=== PATIENT | female | born 1995 | race African-American/Black ===

== ENCOUNTER 2021-05-09 19:45 | Observation (INO) | payer BC ==
[~2021-05-09] VITALS: Ht 160 cm; Wt 65.6 kg
--- NOTE | 2021-05-09 20:05 | PDOC1 ---
[facility] H&P Date of Admission: Date of Admission: May 09, 2021 at 19:45 History of Present Illness: The pt is a 26y who presented to the ER with VB and RLQ pain. The pt reported the intermittent since 03/21/21. The pt has not had a period since her delivery 06/07/20. She has been breast feeding over that time period. In the ER a u/s was performed revealing the followin. No evidence of intrauterine . 2. Heterogeneous region within the right adnexa with large complex fluid in the pelvis, may represent ruptured ectopic . Recommend further clinical evaluation. PMH: Denies PSH: Denies Meds: OCPs All: NKDA OBHx: 2 x TSVD SH: no tob, no EtOH FH: Breast CA Physical Exam: PE: GENERAL: No apparent distress. Alert and oriented. HEENT: Head normocephalic, atraumatic. NECK: Supple LUNGS: Clear to auscultation. HEART: RRR, S1, S2 present, pulses intact ABDOMEN: Soft, positive bowel sounds. EXTREMITIES: No cyanosis or edema. NEUROLOGIC: Normal speech, normal tone PSYCHIATRIC: Normal affect, normal mood. SKIN: No ulceration. Assessment & Plan: A/P 26y with ruptured right ectopic 1.) Rupture ectopic will move toward laparoscopic right salpingectomy 2.) CBC and T/S ordered VASILIY HAMEED MD May 09, 2021 20:05
[2021-05-09] MEDS ORDERED: ROCURONIUM 50 MG/5 ML VIAL. ONE (20:10)
[2021-05-09] MEDS ORDERED: fentaNYL PF VIAL 100 MCG/2 ML VIAL ONE ×2 (20:10→20:48)
[2021-05-09] MEDS ORDERED: ONDANSETRON PF 4 MG/2 ML VIAL. ONE (20:10)
[2021-05-09] MEDS ORDERED: LIDOCAINE 2% PF 5 ML VIAL. ONE (20:10)
[2021-05-09] MEDS ORDERED: PROPOFOL 10 MG/ML (20ML) VIAL. IV ONE ×2 (20:10→21:40)
[2021-05-09] MEDS ORDERED: DEXAMETHASONE SOD PHOS 4 MG/ML VIAL ONE (20:10)
[2021-05-09] MEDS ORDERED: SUCCINYLCHOLINE 200 MG/10 ML VIAL. ONE (20:10)
[2021-05-09 20:27] LABS: BASO # 0.1 x10^3/uL (0.0-0.2); BASO % 1 % (0-3); EOS % 0 % (0-3); HEMATOCRIT 31.1 % (36.0-47.0); HEMOGLOBIN 10.5 g/dL (12.0-15.5); LYMPH % 28 % (24-48); MEAN CORPUSCULAR HEMOGLOBIN 30 pg (25-35); MEAN CORPUSCULAR HGB CONC 34 g/dL (31-37); MEAN CORPUSCULAR VOLUME 88 fL (79-100); MONO # 0.5 x10^3/uL (0.0-1.1); MONO % 7 % (0-9); NEUT # 4.5 x10^3/uL (1.8-7.7); NEUT % 64 % (31-73); PLATELET COUNT 195 x10^3/uL (140-400); RED BLOOD COUNT 3.54 x10^6/uL (3.50-5.40); RED CELL DISTRIBUTION WIDTH 12.8 % (11.5-14.5)
[2021-05-09] MEDS ORDERED: IV RINGERS,LACTATED 1000ML 1,000 ML IV SCH ×2 (20:30→21:15)
[2021-05-09] MEDS ORDERED: MORPHINE SULFATE 2 MG/ML INJ. IVP PRN ×2 (21:15→22:15)
[2021-05-09] MEDS ORDERED: PROCHLORPERAZINE 10 MG/2 ML VIAL. IVP PRN ×2 (21:15→22:15)
[2021-05-09] MEDS ORDERED: fentaNYL PF VIAL 100 MCG/2 ML VIAL IVP PRN ×4 (21:15→22:15)
[2021-05-09] MEDS ORDERED: HYDROmorphone 2 MG/ML VIAL IVP PRN (21:15)
[2021-05-09] MEDS ORDERED: NEOSTIGMINE METHYLSULFATE 5 MG/5 ML SYRINGE. ONE (21:17)
[2021-05-09] MEDS ORDERED: KETOROLAC 30 MG/ML VIAL. ONE (21:17)
[2021-05-09] MEDS ORDERED: GLYCOPYRROLATE 1 MG/5 ML VIAL. ONE (21:17)
[2021-05-09] MEDS ORDERED: SEVOFLURANE 31 TO 60 MINUTES. IH ONE (21:22)
[2021-05-09] MEDS ORDERED: SEVOFLURANE 61 TO 120 MINUTES. IH ONE (21:28)
[2021-05-09] MEDS ORDERED: IV NORMAL SALINE 1000ML BAG 1,000 ML IV SCH (21:30)
[2021-05-09] MEDS ORDERED: DEXTROSE 50% 25 GM / 50ML DISP.SYRIN. IV PRN (21:30)
[2021-05-09] MEDS ORDERED: diphenhydrAMINE 50 MG/ML VIAL IV PRN (21:30)
[2021-05-09] MEDS ORDERED: oxyCODONE/APAP 5/325 1 TAB TABLET PO PRN ×2 (21:30)
[2021-05-09] MEDS ORDERED: NALOXONE 0.4 MG/ML VIAL. IV PRN (21:30)
[2021-05-09] MEDS ORDERED: IV DEXTROSE 5 %-0.45 % NACL 1,000 ML IV SCH (21:30)
[2021-05-09] MEDS ORDERED: 0.9 % SODIUM CHLORIDE 10 ML DISP.SYRIN. IV PRN (21:30)
[2021-05-09] MEDS ORDERED: diphenhydrAMINE HCL 25 MG CAPSULE PO PRN (21:30)
[2021-05-09] MEDS ORDERED: IBUPROFEN 200 MG TABLET. PO PRN (21:30)
[2021-05-09] MEDS ORDERED: MORPHINE SULFATE 2 MG/ML INJ. IV PRN ×2 (21:30)
[2021-05-09] MEDS ORDERED: KETOROLAC 15 MG/ML VIAL. IV PRN (21:30)
--- NOTE | 2021-05-09 21:41 | PDOC4 ---
OPERATIVE NOTE: PreOp Dx: 1.) Rupture right ectopic PostOp Dx: same Procedure: L/S right salpingectomy Surgeon: Hailey Hameed Anesthesia: GETA EBL: 300 cc Fluids: 1800 cc UOP: 80 cc Findings: right ruptured ectopic Complications: None VASILIY HAMEED MD May 09, 2021 21:41
[2021-05-09] MEDS ORDERED: MORPHINE SULFATE 2 MG/ML INJ. ONE (22:11)
[2021-05-09] MEDS ORDERED: HYDROmorphone 2 MG/ML VIAL IV PRN ×2 (22:15)
--- NOTE | 2021-05-09 22:16 | OP ---
DATE OF SURGERY: 05/09/2021 PREOPERATIVE DIAGNOSIS: Ruptured of right ectopic . POSTOPERATIVE DIAGNOSIS: Ruptured of right ectopic . PROCEDURE: Laparoscopic right salpingectomy. SURGEON: Alexi Monroe MD. ANESTHESIA: General endotracheal intubation. ESTIMATED BLOOD LOSS: 300 mL. FLUIDS: 1800 mL. URINE OUTPUT: 80 mL. FINDINGS: Right ruptured ectopic with approximately 300 mL of blood and clot in the pelvis. COMPLICATIONS: None. DESCRIPTION OF PROCEDURE: The patient was taken to the operating room where general endotracheal intubation was obtained without difficulty. The patient was prepped and draped in normal sterile fashion. A sponge stick was then placed into the vagina to manipulate the uterus. Attention was then turned to the abdomen where a 5 mm skin incision was made in the infraumbilical fold. A Veress needle was then introduced into the incision and the abdomen was insufflated to 15 mmHg. At that point, the Veress needle was removed and a 5 mm trocar was placed into the abdomen. Intraabdominal placement was confirmed with the laparoscope. At that point, there was approximately 300 mL of blood in the pelvis. A second trocar was then placed on the left approximately two-thirds between the ischial spine and the umbilicus first by making a 5 mm skin incision and then placing a 5 mm trocar under direct visualization of laparoscope. At that point, the suction brine tank separator operator was used to clear some of the blood due to the large clots. It was hard to evacuate all the blood at that time. So attention was then turned to the right side where a third trocar was then placed approximately two-thirds between the ischial spine and the umbilicus first by making a 5 mm skin incision and then placing a 5 mm trocar under direct visualization of the laparoscope. At that point, the tube containing the ectopic was grabbed and the Harmonic scalpel was used to separate this portion of the tube from the ovary. Once the portion of the tube containing the ectopic was from the ovary, the distal portion of the tube was then placed into the anterior cul-de-sac. At that point, the 5 mm trocar and the umbilicus was removed. The skin incision was then extended to 10 mm to allow for a 10 mm trocar to be placed. Once this was done, the Biobag was then placed into the pelvis and opened and the ectopic was then placed inside the laparoscopic bag, which was then closed and brought through the 10 mm skin incision. At that point, the pelvis was copiously irrigated with the suction device to clear all the clots and debris. Good hemostasis was noted. At that point, the laparoscopic instruments were removed. The abdomen was then insufflated and trocars were removed. The 10 mm fascial incision was then closed with 0 Vicryl in a running fashion. The skin was then closed with 3-0 Monocryl in a subcuticular manner. The patient tolerated the procedure well. Sponges, laps and needles were correct x 2. The patient was taken to recovery room in stable condition. KISHORE DR: Patrick TID: [id number]
[2021-05-09] MEDS ORDERED: HYDROmorphone 2 MG/ML VIAL ONE (22:30)
[2021-05-09 23:05] VITALS: BP 117/77
[2021-05-09 23:20] VITALS: BP 117/80
[2021-05-09 23:35] VITALS: BP 112/69
[2021-05-09 23:50] VITALS: BP 106/70
[2021-05-10 00:06] VITALS: BP 110/72
[2021-05-10 01:06] VITALS: BP 120/61
[2021-05-10] MEDS ORDERED: KETOROLAC 30 MG/ML VIAL. IV PRN (02:15)
[2021-05-10 05:15] VITALS: BP 98/59
[2021-05-10 08:26] LABS: BASO % 0 % (0-3); EOS % 0 % (0-3); HEMATOCRIT 28.5 % (36.0-47.0); HEMOGLOBIN 9.7 g/dL (12.0-15.5); LYMPH # 0.7 x10^3/uL (1.0-4.8); LYMPH % 12 % (24-48); MEAN CORPUSCULAR HEMOGLOBIN 30 pg (25-35); MEAN CORPUSCULAR HGB CONC 34 g/dL (31-37); MEAN CORPUSCULAR VOLUME 89 fL (79-100); MONO # 0.3 x10^3/uL (0.0-1.1); MONO % 5 % (0-9); NEUT % 83 % (31-73); PLATELET COUNT 173 x10^3/uL (140-400); RED BLOOD COUNT 3.19 x10^6/uL (3.50-5.40); RED CELL DISTRIBUTION WIDTH 13.1 % (11.5-14.5); WHITE BLOOD COUNT 6.1 x10^3/uL (4.0-11.0)
[2021-05-10 08:38] LABS: CALCIUM 8.5 mg/dL (8.5-10.1); CREATININE 0.6 mg/dL (0.6-1.0); GFR 145.1; POTASSIUM 4.2 mmol/L (3.5-5.1)
[2021-05-10] MEDS ORDERED: DOCUSATE SODIUM 100 MG CAPSULE. PO SCH (09:00)
[2021-05-10] MEDS ORDERED: OXYC1TAB15 PO (10:25)
--- NOTE | 2021-05-10 11:09 | PDOC ---
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 Sherwin PO. Voiding. Objective: Vital Signs: Vital Signs Date Time Temp Pulse Resp B/P (MAP) Pulse Ox O2 Delivery O2 Flow Rate FiO2 05/09/21 20:05 98.8 103 20 135/86 98 Room Air 98.8 05/09/21 21:44 8 Vital Signs Date Time Temp Pulse Resp B/P (MAP) Pulse Ox O2 Delivery O2 Flow Rate FiO2 05/10/21 05:15 97.9 92 20 98/59 (72) 97 Room Air 97.9 05/09/21 22:01 8 Labs: Laboratory Tests Test 05/09/21 20:15 05/10/21 08:00 White Blood Count 7.0 x10^3/uL (4.0-11.0) 6.1 x10^3/uL (4.0-11.0) Red Blood Count 3.54 x10^6/uL (3.50-5.40) 3.19 x10^6/uL (3.50-5.40) L Hemoglobin 10.5 g/dL (12.0-15.5) L 9.7 g/dL (12.0-15.5) L Hematocrit 31.1 % (36.0-47.0) L 28.5 % (36.0-47.0) L Mean Corpuscular Volume 88 fL (79-100) 89 fL (79-100) Mean Corpuscular Hemoglobin 30 pg (25-35) 30 pg (25-35) Mean Corpuscular Hemoglobin Concent 34 g/dL (31-37) 34 g/dL (31-37) Red Cell Distribution Width 12.8 % (11.5-14.5) 13.1 % (11.5-14.5) Platelet Count 195 x10^3/uL (140-400) 173 x10^3/uL (140-400) Neutrophils (%) (Auto) 64 % (31-73) 83 % (31-73) H Lymphocytes (%) (Auto) 28 % (24-48) 12 % (24-48) L Monocytes (%) (Auto) 7 % (0-9) 5 % (0-9) Eosinophils (%) (Auto) 0 % (0-3) 0 % (0-3) Basophils (%) (Auto) 1 % (0-3) 0 % (0-3) Neutrophils # (Auto) 4.5 x10^3/uL (1.8-7.7) 5.0 x10^3/uL (1.8-7.7) Lymphocytes # (Auto) 2.0 x10^3/uL (1.0-4.8) 0.7 x10^3/uL (1.0-4.8) L Monocytes # (Auto) 0.5 x10^3/uL (0.0-1.1) 0.3 x10^3/uL (0.0-1.1) Eosinophils # (Auto) 0.0 x10^3/uL (0.0-0.7) 0.0 x10^3/uL (0.0-0.7) Basophils # (Auto) 0.1 x10^3/uL (0.0-0.2) 0.0 x10^3/uL (0.0-0.2) Sodium Level 137 mmol/L (136-145) Potassium Level 4.2 mmol/L (3.5-5.1) Chloride Level 104 mmol/L (98-107) Carbon Dioxide Level 26 mmol/L (21-32) Anion Gap 7 (6-14) Blood Urea Nitrogen 6 mg/dL (7-20) L Creatinine 0.6 mg/dL (0.6-1.0) Estimated GFR (Cockcroft-Gault) 145.1 Glucose Level 99 mg/dL (70-99) Calcium Level 8.5 mg/dL (8.5-10.1) Laboratory Tests 05/09/21 20:15 05/10/21 08:00 Laboratory Tests 05/10/21 08:00 Laboratory Tests 05/10/21 08:00 Physical Exam: GENERAL: No apparent distress. Alert and oriented. HEENT: Head normocephalic, atraumatic. NECK: Supple LUNGS: Clear to auscultation. HEART: RRR, S1, S2 present, pulses intact ABDOMEN: Soft, positive bowel sounds. EXTREMITIES: No cyanosis or edema. NEUROLOGIC: Normal speech, normal tone PSYCHIATRIC: Normal affect, normal mood. SKIN: No ulceration. S/NT/ND Inc: C/D/I No C/C/E Assessment & Plan: A/P 26y POD #1 s/p L/S right salpingectomy for ruptured ectopic 1.) PO doing well 2.) Hgb 10.5 -> 9.7 3.) D/c home VASILIY HAMEED MD May 10, 2021 11:09
--- NOTE | 2021-05-10 13:09 | DS ---
DATE OF DISCHARGE: 05/10/2021 ADMISSION DIAGNOSIS: Ruptured right ectopic . DISCHARGE DIAGNOSIS: Ruptured right ectopic . PROCEDURE: Laparoscopic right salpingectomy. BRIEF HOSPITAL COURSE: The patient is a 26-year-old 3, para 2-0-0-2, who presented to [facility] ER with vaginal bleeding and right lower quadrant pain. The patient was evaluated at [facility] ER where an ultrasound was performed revealing a heterogeneous region within the right adnexa with large complex fluid in the pelvis, may represent ruptured ectopic . At that time, the patient's hemoglobin was normal. The patient was thus transferred to [place] for surgical management of a ruptured ectopic . The patient had reported that she had intermittent bleeding since 03/21/2021 and had not had a period since the delivery of her last child on 06/07/2020. Over that time period, she had been . The patient arrived to [facility] where she underwent a laparoscopic right salpingectomy. See operative note for full detail. By postop day #1, the patient was meeting all discharge criteria and subsequently discharged home. Of note, her hemoglobin when she presented to [place] was 10.5 and after surgery was found to be 9.7. DISCHARGE INSTRUCTIONS: The patient was told not to lift anything greater than 20 pounds, have pelvic rest for 6 weeks, not to drive on narcotics. CALL IF: The patient was to call if she had fevers, chills, nausea, vomiting, abdominal pain or any additional questions or concerns. FOLLOWUP APPOINTMENT: The patient was to follow up on 05/15 at 1:15 p.m. at [place]. DISCHARGE MEDICATIONS: The patient was given a prescription for Percocet 5, 15 pills, Motrin 800 mg, 30 pills and Colace 100 mg, 30 pills. JOSUE/JENIFFER DR: Patrick TID: [id number]
[2021-05-10 13:14] VITALS: BP 107/63
== END 2021-05-10 13:00 | disposition home or self-care (01) ==
LOC: 3 SO LND 19:45 → INTOOBSV 19:45 → 3 NORTH 23:29
PROVIDERS: ADMIT Obstetrics & Gynecology; ATTEND Obstetrics & Gynecology
DX: O00.90 Unspecified ectopic pregnancy without intrauterine pregnancy (principal)
CPT/HCPCS: 36415; 59151; 80048; 85025; 86850; 86900; 86901; 96374; A4364; A4930; A6219; G0378; J0330; J0690; J1100; J1170; J1885; J2270; J2405; J2704; J2710; J3490; J7120; A4452; A4657; G0379; J3010